=== PATIENT | male | born 1985 | race African-American/Black ===

== ENCOUNTER 2020-08-14 09:32 | Emergency (ER) | payer SELFPAY ==
[~2020-08-14] VITALS: Ht 185.4 cm; Wt 70.3 kg
[2020-08-14 09:47] VITALS: BP 114/71
== END 2020-08-14 10:38 | disposition home or self-care (01) ==
LOC: ER 09:32
DX: L73.2 Hidradenitis suppurativa (principal)

== ENCOUNTER 2022-06-14 02:35 | Emergency (ER) | payer MEDICAID ==
[~2022-06-14] VITALS: Ht 185.4 cm; Wt 73.0 kg
[2022-06-14 02:51] VITALS: BP 128/70
[2022-06-14] MEDS ORDERED: IBUP800T27 PO (03:41)
[2022-06-14] MEDS ORDERED: AMOX-277 PO (03:41)
[2022-06-14] MEDS ORDERED: KETOROLAC TROMETH 60MG/2ML VIAL IM ONE (03:45)
== END 2022-06-14 03:44 | disposition home or self-care (01) ==
LOC: ER 02:35
DX: K08.89 Other specified disorders of teeth and supporting structures (principal)
CPT/HCPCS: 96372; 99283; J1885